=== PATIENT | female | born 1995 | race Caucasian/White ===

== ENCOUNTER → 2021-05-05 | Outpatient (CLI) | payer OTHER ==
--- NOTE | 2021-05-05 09:39 | REP ---
INDICATION: DATES, ANATOMY, GROWTH, UNK LMP, NO CARE COMPARISON: None. TECHNIQUE: Transabdominal obstetrical ultrasound with color Doppler evaluation. FINDINGS: Examination demonstrates a single live intrauterine in cephalic presentation. motion is identified by technologist. Placenta is noted anterior and grade 1 without evidence for placenta previa or abruption. Amniotic fluid volume is normal. Cervix measures 3.5 cm in length and appears closed.. Selected gestational age: 26 weeks 1 day with ROLY 08/10/2021. Gestational age by current measurements 26 weeks 1 day with ROLY 08/10/2021. FHR equals 153 beats per minute. BPD: 6.5 cm at 26 weeks 3 days HC: 24.3 cm at 26 weeks 3 days AC: 21.4 cm at 25 weeks 6 days FL: 4.7 cm at 25 weeks 5 days HL: 4.4 cm at 26 weeks 3 days HC/AC: 1.14 Estimated weight 865 grams (29thpercentile). Anatomical assessment demonstrates normal structures including cranium, choroid plexus, cavum, cerebellum/posterior fossa, facial features, lungs, four-chamber heart/ventricular outflow tracts, diaphragm, stomach, cord insertion/three-vessel cord, kidneys/bladder, spine, and extremities. IMPRESSION: Single live intrauterine in cephalic presentation. Anatomical assessment is complete and normal. Estimated weight normal. <Electronically signed by Stewart Sheth > 05/05/21 [id number]
== END ==
LOC: M RAD 08:51
PROVIDERS: ATTEND Nurse Practitioner Women's Health
DX: Z36.89 Encounter for other specified antenatal screening (principal); Z3A.26 26 weeks gestation of pregnancy

== ENCOUNTER 2021-08-17 10:48 | Inpatient (IN) | payer OTHER ==
[~2021-08-17] VITALS: Ht 160 cm; Wt 71.5 kg
[2021-08-17] VITALS (37 sets, daily range): BP systolic 113–190; BP diastolic 54–83
[2021-08-17] MEDS ORDERED: LACTATED RINGER'S 1000 ML IV STA (10:59)
[2021-08-17] MEDS ORDERED: CARBOPROST TROMETHAMINE 250 MCG/ML AMP IM PRN (11:00)
[2021-08-17] MEDS ORDERED: TRANEXAMIC ACID INJection 1,000 MG in NS 100 ML IV PRN (11:00)
[2021-08-17] MEDS ORDERED: LIDOCAINE 1% MDV 20ML VIAL INFIL PRN (11:00)
[2021-08-17] MEDS: LR 1,000 ML IV SCH ×2 (11:00→20:52)
[2021-08-17] MEDS ORDERED: OXYTOCIN DRIP 30 UNITS in IV 1 EA IV PRN ×4 (11:00)
[2021-08-17] MEDS ORDERED: METHYLERGONOVINE MALEATE 0.2 MG/ML VIAL (J2210) IM PRN (11:00)
[2021-08-17] MEDS ORDERED: HOME MED LIST COMPLETE! XX SCH (11:15)
[2021-08-17 12:00] LABS: HEMATOCRIT 33.9 % (36.0-47.0); HEMOGLOBIN 10.4 g/dl (12.0-15.5); MEAN CORPUSCULAR HEMOGLOBIN 25.1 pg (27.0-33.0); MEAN CORPUSCULAR HGB CONC 30.7 g/dl (32.0-36.5); MEAN CORPUSCULAR VOLUME 81.9 fl (80.0-96.0); PLATELET COUNT, AUTOMATED 303 10^3/uL (150-450); RED BLOOD COUNT 4.14 10^6/uL (4.00-5.40); WHITE BLOOD COUNT 13.8 10^3/uL (4.0-10.0)
[2021-08-17] MEDS ORDERED: OXYTOCIN DRIP 30 UNITS in IV 1 EA IV SCH (12:15)
[2021-08-17] MEDS ORDERED: FENTANYL 2MCG/ML ROPIVACAINE 0.2% IN 0.9% NACL 100ML IVBAG As Ordered ONE (21:30)
[2021-08-18] VITALS (19 sets, daily range): BP systolic 110–148; BP diastolic 59–84
[2021-08-18] MEDS ORDERED: diphenhydrAMINE 50MG/ML VIAL (J1200) IV PRN (01:50)
[2021-08-18] MEDS ORDERED: FENTANYL/ROPIVACAINE/NACL BAG 100 ML EPIDURAL SCH (01:50)
[2021-08-18] MEDS ORDERED: NALOXONE INJ 0.4MG/1ML VIAL (J2310 PER 1MG) IV PRN (01:50)
[2021-08-18] MEDS ORDERED: ePHEDrine SULFATE 25 MG/5 ML(5MG/ML) SYRINGE IV PRN (01:50)
[2021-08-18] MEDS ORDERED: ONDANSETRON 4MG/2ML VIAL IV PRN (01:50)
[2021-08-18] MEDS ORDERED: EPIDURAL COMMENT XX SCH (01:50)
[2021-08-18] MEDS ORDERED: LACTATED RINGER'S 1000 ML IV PRN (01:50)
[2021-08-18] MEDS ORDERED: REFRIGERATOR IV KEYS XX PRN (01:50)
[2021-08-18] MEDS ORDERED: EPIDURAL/PCA KEYS XX PRN (01:50)
[2021-08-18 04:12] LABS: CORD GAS ABE A -5.3; CORD GAS ABE V -4.2; CORD GAS HCO3 A 20.7 MEQ/L; CORD GAS HCO3 V 21.7 MEQ/L; CORD GAS O2 SAT A 82.4 %; CORD GAS O2 SAT V 94.8 %; CORD GAS PCO2 A 42.1 mmHg; CORD GAS PCO2 V 42.7 mmHg; CORD GAS PH A 7.31 UNITS; CORD GAS PH V 7.324 UNITS; CORD GAS PO2 A 39.1 mmHg; CORD GAS PO2 V 59.7 mmHg; CORD GAS SBC A 19.8 MEQ/L
[2021-08-18] MEDS ORDERED: OXYTOCIN DRIP 30 UNITS in IV 1 EA IV SCH (04:20)
[2021-08-18] MEDS ORDERED: ACETAMINOPHEN TAB 650MG DOSE (2X325MG) PO PRN (04:20)
[2021-08-18] MEDS ORDERED: DIBUCAINE 1% OINTMENT 30GM TOP PRN (04:20)
[2021-08-18] MEDS ORDERED: DOCUSATE SODIUM 100MG CAPSULE PO PRN (04:20)
[2021-08-18] MEDS ORDERED: MOM 30ML SUSPENSION UDC PO PRN (04:20)
[2021-08-18] MEDS ORDERED: ANUSOL HC CREAM 30GM TOP PRN (04:20)
[2021-08-18] MEDS: IBUPROFEN 800 MG TAB PO PRN ×2 (05:19→18:49)
[2021-08-18] MEDS: PRENATAL VITAMINS CHEWABLE TABLET PO SCH (10:29)
[2021-08-18] MEDS: ACETAMINOPHEN 500 MG TAB PO PRN ×2 (10:34→20:01)
[2021-08-19] MEDS: ACETAMINOPHEN 500 MG TAB PO PRN ×3 (02:09→19:59)
[2021-08-19] MEDS: IBUPROFEN 800 MG TAB PO PRN (04:18)
[2021-08-19 05:58] VITALS: BP 134/60
[2021-08-19] MEDS: PRENATAL VITAMINS CHEWABLE TABLET PO SCH (08:18)
[2021-08-19] MEDS ORDERED: no meds (15:34)
[2021-08-19 17:56] VITALS: BP 124/62
[2021-08-20] MEDS: IBUPROFEN 800 MG TAB PO PRN ×2 (00:05→09:30)
[2021-08-20] MEDS ORDERED: ACET-683 PO (04:03)
[2021-08-20] MEDS ORDERED: IBUP80TA PO (04:03)
[2021-08-20 05:47] VITALS: BP 128/61
[2021-08-20] MEDS: PRENATAL VITAMINS CHEWABLE TABLET PO SCH (09:29)
== END 2021-08-20 12:00 | disposition home or self-care (01) | DRG 807 ==
LOC: M LDI 10:48 → M OBS 08-18 06:16
PROVIDERS: ADMIT Advanced Practice Midwife; ATTEND Obstetrics & Gynecology
PROC: 3E033VJ Introduction of Other Hormone into Peripheral Vein, Percutaneous Approach (ICD-10-PCS; 2021-08-17)
PROC: 10E0XZZ Delivery of Products of Conception, External Approach (ICD-10-PCS; principal; 2021-08-18)
PROC: 0HQ9XZZ Repair Perineum Skin, External Approach (ICD-10-PCS; 2021-08-18)
DX: O48.0 Post-term pregnancy (principal); Z37.0 Single live birth; Z3A.41 41 weeks gestation of pregnancy; O77.0 Labor and delivery complicated by meconium in amniotic fluid; O66.0 Obstructed labor due to shoulder dystocia; O70.0 First degree perineal laceration during delivery

== ENCOUNTER 2022-03-31 06:34 | Day surgery (SDC) | payer OTHER ==
[~2022-03-31] VITALS: Ht 160 cm; Wt 58.5 kg
[~2022-03-31 06:34] MED LIST: ACET-683 PO; ACETAMINOPHEN *IV* 1,000 MG IV ONE; IBUP80TA PO; ZOLO100T PO; no meds
[2022-03-31] MEDS ORDERED: LR 1,000 ML IV SCH ×2 (07:00→08:40)
[2022-03-31 07:07] LABS: HEMATOCRIT 37.9 % (36.0-47.0); HEMOGLOBIN 12.6 g/dl (12.0-15.5); MEAN CORPUSCULAR HEMOGLOBIN 28.3 pg (27.0-33.0); MEAN CORPUSCULAR HGB CONC 33.2 g/dl (32.0-36.5); PLATELET COUNT, AUTOMATED 298 10^3/uL (150-450); RED BLOOD COUNT 4.46 10^6/uL (4.00-5.40); WHITE BLOOD COUNT 9.8 10^3/uL (4.0-10.0)
[2022-03-31] MEDS ORDERED: LIDOCAINE W/EPINEPHRINE 1% 20ML VIAL As Ordered ONE (07:14)
[2022-03-31] MEDS ORDERED: KETOROLAC 60MG 2ML VIAL As Ordered ONE (07:25)
[2022-03-31] MEDS ORDERED: LIDOCAINE 2% 100MG/5ML SDV (FOR ANES.) As Ordered ONE (07:25)
[2022-03-31] MEDS ORDERED: propofoL 200 MG/20 ML VIAL As Ordered ONE (07:25)
[2022-03-31] MEDS ORDERED: ONDANSETRON 4MG 2ML VIAL As Ordered ONE (07:25)
[2022-03-31] MEDS ORDERED: ACETAMINOPHEN 1000MG 100ML IV BTL (OFIRMEV) (J0131 PER 10MG) As Ordered ONE (07:25)
[2022-03-31] MEDS ORDERED: MIDAZOLAM INJ 2MG/2ML VIAL (J2250 PER 1MG) As Ordered ONE (07:25)
[2022-03-31] MEDS ORDERED: fentaNYL 100 MCG/2 ML INJECTION As Ordered ONE (07:25)
[2022-03-31] MEDS ORDERED: IODINE STRONG SOLN 15 ML BTL As Ordered ONE (07:27)
[2022-03-31] MEDS ORDERED: dexameTHASONE 4 MG/ML 1ML VIAL (J1100 PER 1MG) As Ordered ONE (07:57)
[2022-03-31] MEDS ORDERED: ONDANSETRON 4MG 2ML VIAL IV PRN (08:40)
[2022-03-31] MEDS ORDERED: MORPHINE 2 MG/ML 1ML VIAL IV PRN (08:40)
[2022-03-31] MEDS ORDERED: fentaNYL 100 MCG/2 ML INJECTION IV PRN (08:40)
[2022-03-31] MEDS ORDERED: oxyCODONE 5MG TAB PO PRN (08:40)
[2022-03-31 09:40] VITALS: BP 125/62
== END 2022-03-31 10:03 | disposition home or self-care (01) ==
LOC: M SDC 06:34
PROVIDERS: ATTEND Obstetrics & Gynecology
DX: R87.612 Low grade squamous intraepithelial lesion on cytologic smear of cervix (LGSIL) (principal); N88.8 Other specified noninflammatory disorders of cervix uteri; F32.A Depression, unspecified; Z79.899 Other long term (current) drug therapy
CPT/HCPCS: 36415; 57522; 81025; 85027; 86850; 86900; 86901; 88305; 88307; J0131; J1100; J1885; J2250; J2405; J3010

== ENCOUNTER 2023-07-26 08:32 | Inpatient (IN) | payer OTHER ==
[~2023-07-26] VITALS: Ht 157.5 cm; Wt 62.3 kg
[~2023-07-26 08:32] MED LIST changes: -ACETAMINOPHEN *IV* 1,000 MG IV ONE
[2023-07-26 09:33] LABS: HEMATOCRIT 40.7 % (36.0-47.0); MEAN CORPUSCULAR HEMOGLOBIN 31.1 pg (27.0-33.0); MEAN CORPUSCULAR HGB CONC 34.4 g/dl (32.0-36.5); MEAN CORPUSCULAR VOLUME 90.4 fl (80.0-96.0); PLATELET COUNT, AUTOMATED 331 10^3/uL (150-450); WHITE BLOOD COUNT 11.3 10^3/uL (4.0-10.0)
[2023-07-26 09:57] LABS: ETHYL ALCOHOL (ETHANOL) < 0.003 % (0.000-0.010)
[2023-07-26 09:59] LABS: ALBUMIN 4.1 G/DL (3.2-5.2); ALKALINE PHOSPHATASE 69 U/L (46-116); ALT/SGPT 14 U/L (7.0-40); AST/SGOT 13 U/L (<34); BILIRUBIN,DIRECT 0.1 MG/DL (<0.4); BILIRUBIN,TOTAL 0.3 MG/DL (0.3-1.2); BLOOD UREA NITROGEN 10 MG/DL (9-23); CALCIUM LEVEL 9.1 MG/DL (8.5-10.1); CARBON DIOXIDE LEVEL 26 MMOL/L (20-31); CHLORIDE LEVEL 107 MMOL/L (98-107); GLOMERULAR FILTRATION RATE > 60.0 (>60); GLUCOSE, FASTING 115 MG/DL (60-100); POTASSIUM SERUM 3.8 MMOL/L (3.5-5.1); SALICYLATE LEVEL < 3.0 MG/DL (<30); SODIUM LEVEL 139 MMOL/L (136-145); TOTAL PROTEIN 7.1 G/DL (5.7-8.2)
[2023-07-26 10:01] LABS: THYROID STIMULATING HORMONE 1.188 uIU/ML (0.55-4.78)
[2023-07-26 10:04] LABS: HCG, SERUM QUALITATIVE NEGATIVE (NEGATIVE)
[2023-07-26 11:37] LABS: AMPHETAMINES LEVEL URINE NEGATIVE (NEGATIVE); BARBITURATES URINE NEGATIVE (NEGATIVE); BENZODIAZEPINES URINE NEGATIVE (NEGATIVE); CANNABINOIDS URINE NEGATIVE (NEGATIVE); PHENCYCLIDINE URINE NEGATIVE (NEGATIVE)
[2023-07-26 11:38] LABS: COCAINE METABOLITE URINE NEGATIVE (NEGATIVE); METHADONE URINE NEGATIVE (NEGATIVE); OPIATES URINE NEGATIVE (NEGATIVE)
[2023-07-26] MEDS ORDERED: MED REC IN PROGRESS XX SCH (11:50)
[2023-07-26] MEDS ORDERED: diphenhydrAMINE 25MG CAP PO PRN (15:25)
[2023-07-26] MEDS ORDERED: IBUPROFEN 400MG TAB PO PRN (15:25)
[2023-07-26] MEDS ORDERED: MAALOX 30 ML SUSP *UDC PO PRN (15:25)
[2023-07-26] MEDS ORDERED: traZODone 50 MG TAB PO PRN (15:25)
[2023-07-26] MEDS ORDERED: ACETAMINOPHEN TAB 650MG DOSE (2X325MG) PO PRN (15:25)
[2023-07-26] MEDS ORDERED: MOM 30ML SUSPENSION UDC PO PRN (15:25)
[2023-07-26] MEDS ORDERED: HOME MED LIST COMPLETE! XX SCH (17:00)
[2023-07-27 06:44] VITALS: BP 119/64; TEMP 99.3; O2SAT 96
[2023-07-27] MEDS ORDERED: INFLUENZA QUADRIVALENT PF VACCINE 0.5ML SYRINGE IM.IMMUN ONE (09:00)
[2023-07-27 17:21] VITALS: BP 164/98; TEMP 98.4; O2SAT 96
[2023-07-28 06:33] VITALS: BP 106/51; TEMP 98.6; O2SAT 96
[2023-07-28 17:15] VITALS: BP 108/58; TEMP 98.5; O2SAT 97
[2023-07-29 06:40] VITALS: BP 122/64; TEMP 96.7; O2SAT 96
[2023-07-29] MEDS: ESCITALOPRAM OXALATE 5MG TABLET (LEXAPRO) PO SCH (09:17)
[2023-07-29 16:38] VITALS: BP 116/63; TEMP 98.1; O2SAT 97
[2023-07-30 06:50] VITALS: BP 126/63; TEMP 96.9; O2SAT 97
[2023-07-30] MEDS: ESCITALOPRAM OXALATE 5MG TABLET (LEXAPRO) PO SCH (08:31)
[2023-07-30 15:50] VITALS: BP 123/58; TEMP 98.1; O2SAT 100
[2023-07-31 06:28] VITALS: BP 119/66; TEMP 98.6; O2SAT 96
[2023-07-31] MEDS: ESCITALOPRAM OXALATE 5MG TABLET (LEXAPRO) PO SCH (08:21)
[2023-07-31 15:25] VITALS: BP 11/56; TEMP 98.1; O2SAT 99
[2023-08-01 06:51] VITALS: BP 109/57; TEMP 98.1; O2SAT 96
[2023-08-01] MEDS: ESCITALOPRAM OXALATE 5MG TABLET (LEXAPRO) PO SCH (08:22)
== END 2023-08-01 10:36 | disposition home or self-care (01) | DRG 881 ==
LOC: M ED 08:32 → M ED INP 15:21 → M PSY 17:54
PROVIDERS: ADMIT Student in an Organized Health Care Education/Training Program; ATTEND Student in an Organized Health Care Education/Training Program
DX: F32.A Depression, unspecified (principal); F17.210 Nicotine dependence, cigarettes, uncomplicated; F41.9 Anxiety disorder, unspecified; Z63.0 Problems in relationship with spouse or partner; Z91.51 Personal history of suicidal behavior; Z91.410 Personal history of adult physical and sexual abuse; Z91.411 Personal history of adult psychological abuse; Z20.822 Contact with and (suspected) exposure to COVID-19